=== PATIENT | female | born 1940 | race Caucasian/White ===

== ENCOUNTER → 2016-11-14 | Outpatient (CLI) | payer OTHER ==
[~2016-11-14] MED LIST: ASPCH81X PO; BRIN1SUS OP; GLUC15002 PO; LSN40 PO; MULT-506 PO; OMEGCAP2 PO; TRAV0.00 OP; VERA240T21 PO
--- NOTE | 2016-11-14 17:10 | MAMMOGRAPHY REPORT ---
BILATERAL DIGITAL SCREENING MAMMOGRAM WITH CAD: 11/14/2016 CLINICAL HISTORY: Routine screening. Patient has no complaints. TECHNIQUE: Bilateral CC and MLO views were obtained. Current study was also evaluated with a Comput er Aided Detection (CAD) system. COMPARISON: Comparison is made to exams dated: 11/14/2015 mammogram, 11/11/2014 mammogram, 11/21/2012 m ammogram, 11/10/2013 mammogram, 11/07/2012 mammogram, and 11/07/2011 mammogram - [facility]. BREAST COMPOSITION: The tissue of both breasts is heterogeneously dense, which may obscure small ma sses. FINDINGS: There are mild vascular calcifications in the breasts. Scattered benign coarse calcificat ions and punctate benign-appearing microcalcifications. No obvious new mass, architectural distorti on or cluster of suspicious microcalcifications is seen. IMPRESSION: ACR BI-RADS CATEGORY 1: NEGATIVE There is no mammographic evidence of malignancy. A 1 year screening mammogram is recommended. The p atient will receive written notification of the results. Approximately 10% of breast cancers are not detected with mammography. A negative mammographic repor t should not delay biopsy if a clinically suggestive mass is present. Corinna Silva M.D. 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
== END | disposition home or self-care (01) ==
LOC: C.MAMM 11:25
PROVIDERS: ATTEND Obstetrics & Gynecology
DX: Z12.31 Encounter for screening mammogram for malignant neoplasm of breast (principal)

== ENCOUNTER → 2016-12-06 | Outpatient (CLI) | payer OTHER ==
--- NOTE | 2016-12-06 12:22 | DIAGNOSTIC IMAGING REPORT ---
NECK ULTRASONOGRAPHY CLINICAL HISTORY: Lymphadenopathy COMPARISON STUDY: No previous studies for comparison. FINDINGS: There are prominent bilateral cervical lymph nodes with borderline thickened cortices. The largest on the right measures 17 x 6 x 5 mm. The largest on the left measures 19 x 8 x 7 mm. IMPRESSION: Mild bilateral cervical lymphadenopathy. The lymph nodes demonstrate mildly thickened cortices. Electronically signed by: Francisco Prasad M.D. 12/06/2016 12:20 PM Dictated Date/Time: 12/06/2016 12:18 PM
== END | disposition home or self-care (01) ==
LOC: C.ULTR 11:45
PROVIDERS: ATTEND Family Medicine
DX: Z12.11 Encounter for screening for malignant neoplasm of colon (principal); Z68.26 Body mass index [BMI] 26.0-26.9, adult; R59.1 Generalized enlarged lymph nodes; I10 Essential (primary) hypertension; E78.00 Pure hypercholesterolemia, unspecified

== ENCOUNTER → 2017-08-07 | Outpatient (CLI) | payer OTHER | END | disposition home or self-care (01) | LOC: C.LABSPEC 17:06 | PROVIDERS: ATTEND Urology | DX: N39.0 Urinary tract infection, site not specified (principal); N39.41 Urge incontinence ==

== ENCOUNTER → 2017-09-04 | Outpatient (CLI) | payer OTHER | END | disposition home or self-care (01) | LOC: C.LAB 12:02 | PROVIDERS: ATTEND Nurse Practitioner Adult Health | DX: N39.0 Urinary tract infection, site not specified (principal); N39.41 Urge incontinence ==

== ENCOUNTER → 2017-11-19 | Outpatient (CLI) | payer OTHER ==
--- NOTE | 2017-11-19 15:22 | MAMMOGRAPHY REPORT ---
BILATERAL DIGITAL SCREENING MAMMOGRAM TOMOSYNTHESIS WITH CAD: 11/19/2017 CLINICAL HISTORY: Routine screening. Patient has no complaints. TECHNIQUE: Breast tomosynthesis in addition to standard 2D mammography was performed. Current study was also evaluated with a Computer Aided Detection (CAD) system. COMPARISON: Comparison is made to exams dated: 11/14/2016 mammogram, 11/14/2015 mammogram, 11/11/2014 m ammogram, 11/10/2013 mammogram, 11/21/2012 mammogram, and 11/07/2012 mammogram - [facility]ter. BREAST COMPOSITION: The tissue of both breasts is heterogeneously dense, which may obscure small mas ses. FINDINGS: No suspicious mass, architectural distortion or cluster of microcalcifications is seen. T here are moderate vascular calcifications and scattered rounded rim calcifications bilaterally. IMPRESSION: ACR BI-RADS CATEGORY 1: NEGATIVE There is no mammographic evidence of malignancy. A 1 year screening mammogram is recommended. The pa tient will receive written notification of the results. Approximately 10% of breast cancers are not detected with mammography. A negative mammographic report should not delay biopsy if a clinically suggestive mass is present. Corinna Silva M.D. ay/:11/19/2017 15:04:52 Supervisor: Sana BRADFORD(R)(M), [facility] letter sent: Normal 1/2 BI-RADS Code: ACR BI-RADS Category 1: Negative
== END | disposition home or self-care (01) ==
LOC: C.MAMM 10:38
PROVIDERS: ATTEND Obstetrics & Gynecology
DX: Z12.31 Encounter for screening mammogram for malignant neoplasm of breast (principal)